=== PATIENT | male | born 1955 | race Caucasian/White ===

== ENCOUNTER 2016-11-10 00:54 | Inpatient (IN) | payer OTHER ==
[2016-11-10 01:00] VITALS: O2SAT 97
[2016-11-10 01:13] LABS: AUTOMATED NEUTROPHIL # 12.9 TH/MM3 (1.8-7.7); BASOPHIL # 0.1 TH/MM3 (0-0.2); BASOPHIL % 0.4 % (0.0-2.0); EOSINOPHIL # 0.1 TH/MM3 (0-0.4); EOSINOPHIL % 0.5 % (0.0-4.0); HEMATOCRIT 42.3 % (39.0-51.0); HEMO FLAGS DIFF FINAL; LYMPH % 15.8 % (9.0-44.0); LYMPHOCYTE # 2.6 TH/MM3 (1.0-4.8); MEAN CELL VOLUME 88.2 FL (80.0-100.0); MEAN CORPUSCULAR HEMOGLOBIN 27.9 PG (27.0-34.0); MEAN CORPUSCULAR HGB CONC 31.6 % (32.0-36.0); MONO % 5.5 % (0.0-8.0); NEUT % 77.8 % (16.0-70.0); PLATELET COUNT 310 TH/MM3 (150-450); RED BLOOD COUNT 4.79 MIL/MM3 (4.50-5.90); RED CELL DISTRIBUTION WIDTH 14.1 % (11.6-17.2); WHITE BLOOD COUNT 16.6 TH/MM3 (4.0-11.0)
[2016-11-10 01:15] LABS: I-STAT POTASSIUM 3.9 MMOL/L (3.5-4.9)
[2016-11-10] MEDS ORDERED: IOHEXOL 350 MG/ML 10 ML VIAL (for RAD DIAG) IV ONE (01:24)
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
[2016-11-10 01:34] LABS: APTT (PATIENT) 25.9 SEC (24.3-30.1); INTERNATIONAL NORMALIZED RATIO 0.9 RATIO; PROTHROMBIN TIME - PATIENT 10.3 SEC (9.8-11.6)
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
[2016-11-10] MEDS ORDERED: GLUCAGON 1 MG/ML VIAL OTHER PRN (02:00)
[2016-11-10] MEDS ORDERED: Post-op Orders (for Pharmacy) MISC XX ONE (02:00)
[2016-11-10] MEDS ORDERED: PANTOPRAZOLE SODIUM 40 MG VIAL IV SCH (02:00)
[2016-11-10] MEDS: PANTOPRAZOLE SOD 40 MG DELAYED RELEASE TAB PO SCH ×2 (02:00→13:00)
[2016-11-10] MEDS ORDERED: ONDANSETRON HCL 4 MG/2 ML VIAL IV PRN (02:00)
[2016-11-10] MEDS ORDERED: NALOXONE HCL 0.4 MG/ML AMP IV PRN (02:00)
[2016-11-10] MEDS ORDERED: DEXTROSE 50% IN WATER 50 ML VIAL(D50) IV PRN (02:00)
[2016-11-10] MEDS ORDERED: SODIUM CHLORIDE 0.9% FLUSH 10 ML FLUSH IV FLUSH PRN (02:00)
[2016-11-10] MEDS: SODIUM CHLOR 0.9% 1000 ML INJ 1,000 ML IV SCH ×3 (02:16→20:13)
[2016-11-10 02:17] VITALS: O2SAT 94
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
[2016-11-10 03:22] LABS: AMPHETAMINE, URINE NEG (NEG); BARBITURATES, URINE NEG (NEG); COCAINE, URINE NEG (NEG)
[2016-11-10 03:46] LABS: BLOOD, URINE MOD (NEG); COMMENT (UR) CULT NOT INDICATED; CULTURE IF INDICATED CULT NOT INDICATED; GLUCOSE,URINE 1000 mg/dL (NEG); HYALINE CAST, URINE 1 /lpf (RARE); KETONE, URINE NEG (NEG); NITRITE,URINE NEG (NEG); SQUAMOUS EPITHELIAL CELL URINE <1 /hpf (0-5); URINE COLOR LIGHT-YELLOW (YELLW/STRAW)
[2016-11-10] MEDS: INSULIN NovoLIN REGULAR SUPPLEMENTAL SCALE SQ SCH ×4 (07:00→20:09)
[2016-11-10 08:00] VITALS: BP 128/60; PULSE 91; RESP 18; TEMP 96.7; O2SAT 98
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
[2016-11-10] MEDS: DOCUSATE SODIUM 100 MG CAP PO SCH ×3 (09:00→20:06)
[2016-11-10] MEDS: SODIUM CHLORIDE 0.9% FLUSH 10 ML FLUSH IV FLUSH SCH ×2 (09:00→20:06)
[2016-11-10] MEDS ORDERED: ACETAMINOPHEN 1000 MG/100 ML VIAL IV PRN (09:30)
[2016-11-10] MEDS: THIAMINE HCL 100 MG TAB PO SCH (09:30)
[2016-11-10 11:55] VITALS: BP 159/69; PULSE 98; RESP 18; TEMP 97.8; O2SAT 97
[2016-11-10] MEDS: MULTIVITAMINS/MINERALS THERAPEUTIC TAB PO SCH (12:59)
[2016-11-10] MEDS: FOLIC ACID 1 MG TAB PO SCH (12:59)
[2016-11-10] MEDS: METHOCARBAMOL 500 MG TAB PO SCH ×2 (12:59→17:22)
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
[2016-11-10 16:00] VITALS: BP 162/73; PULSE 91; RESP 17; TEMP 97.8; O2SAT 99
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
[2016-11-10] MEDS ORDERED: DAPA1TAB PO (18:13)
[2016-11-10] MEDS ORDERED: LISI40TA PO (18:13)
[2016-11-10] MEDS ORDERED: AMLO10TA2 PO (18:14)
[2016-11-10] MEDS ORDERED: METO25TA3 PO (18:15)
[2016-11-10] MEDS ORDERED: ATOR20TA15 PO (18:16)
[2016-11-10] MEDS ORDERED: MELO7.5T4 PO (18:17)
[2016-11-10 20:25] VITALS: BP 151/70; PULSE 108; RESP 18; TEMP 99.4; O2SAT 97
[2016-11-11 00:06] VITALS: BP 151/76; PULSE 109; RESP 18; TEMP 99.2; O2SAT 97
[2016-11-11] MEDS: METHOCARBAMOL 500 MG TAB PO SCH ×2 (01:44→10:23)
[2016-11-11] MEDS: INSULIN NovoLIN REGULAR SUPPLEMENTAL SCALE SQ SCH ×2 (05:43→11:00)
[2016-11-11 07:01] LABS: AUTOMATED NEUTROPHIL # 11.1 TH/MM3 (1.8-7.7); BASOPHIL % 0.2 % (0.0-2.0); HEMATOCRIT 37.4 % (39.0-51.0); HEMO FLAGS DIFF FINAL; LYMPH % 10.1 % (9.0-44.0); LYMPHOCYTE # 1.4 TH/MM3 (1.0-4.8); MEAN CELL VOLUME 86.3 FL (80.0-100.0); MEAN CORPUSCULAR HGB CONC 32.4 % (32.0-36.0); MONO % 8.6 % (0.0-8.0); NEUT % 81.1 % (16.0-70.0); PLATELET COUNT 236 TH/MM3 (150-450); RED BLOOD COUNT 4.34 MIL/MM3 (4.50-5.90); RED CELL DISTRIBUTION WIDTH 13.8 % (11.6-17.2); WHITE BLOOD COUNT 13.7 TH/MM3 (4.0-11.0)
[2016-11-11 07:21] LABS: BICARBONATE 22.1 MEQ/L (21.0-32.0); POTASSIUM 3.8 MEQ/L (3.5-5.1)
[2016-11-11] MEDS: SODIUM CHLOR 0.9% 1000 ML INJ 1,000 ML IV SCH (07:47)
[2016-11-11] MEDS: SODIUM CHLORIDE 0.9% FLUSH 10 ML FLUSH IV FLUSH SCH (07:54)
[2016-11-11] MEDS: DOCUSATE SODIUM 100 MG CAP PO SCH (07:54)
[2016-11-11] MEDS: MULTIVITAMINS/MINERALS THERAPEUTIC TAB PO SCH (07:54)
[2016-11-11] MEDS: FOLIC ACID 1 MG TAB PO SCH (07:54)
[2016-11-11] MEDS: THIAMINE HCL 100 MG TAB PO SCH (07:54)
[2016-11-11 08:00] VITALS: BP 166/73; PULSE 104; RESP 20; TEMP 98.9; O2SAT 99
[2016-11-11 12:00] VITALS: BP 127/78; PULSE 103; RESP 20; TEMP 96.4; O2SAT 100
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
== END 2016-11-11 15:58 | disposition home or self-care (01) | DRG 552 ==
LOC: NEPI 00:54 → EDBD 02:01 → NEDA 02:01 → N06B 03:39 → N06A 19:07
PROVIDERS: ADMIT Surgery; ATTEND Surgery
DX: S12.000A Unspecified displaced fracture of first cervical vertebra, initial encounter for closed fracture (principal); S27.329A Contusion of lung, unspecified, initial encounter; S32.039A Unspecified fracture of third lumbar vertebra, initial encounter for closed fracture; S22.31XA Fracture of one rib, right side, initial encounter for closed fracture; I10 Essential (primary) hypertension; S12.600A Unspecified displaced fracture of seventh cervical vertebra, initial encounter for closed fracture; E11.9 Type 2 diabetes mellitus without complications; F10.129 Alcohol abuse with intoxication, unspecified; R40.2423 Glasgow coma scale score 9-12, at hospital admission; V43.52XA Car driver injured in collision with other type car in traffic accident, initial encounter; Y90.8 Blood alcohol level of 240 mg/100 ml or more; Y92.411 Interstate highway as the place of occurrence of the external cause; Z87.891 Personal history of nicotine dependence
CPT/HCPCS: 70450; 71010; 71260; 72125; 74177; 80048; 80307; 81001; 82435; 82565; 82947; 82948; 84132; 84295; 84520; 85025; 85610; 85730; 86850; 86900; 86901; 94150; C9113; J7030; L0150; Q9967